=== PATIENT | female | born 1980 | race Caucasian/White ===

== ENCOUNTER 2016-09-10 11:29 | Emergency (ER) | payer MEDICAID ==
[~2016-09-10] VITALS: Ht 157.5 cm; Wt 72.1 kg
[2016-09-10 11:45] VITALS: BP_SYST 121
[2016-09-10 13:02] VITALS: BP_SYST 135
== END 2016-09-10 13:02 | disposition home or self-care (01) ==
LOC: SED 11:29
DX: L60.0 Ingrowing nail (principal)
CPT/HCPCS: 99283